=== PATIENT | female | born 1940 | race Caucasian/White ===

== ENCOUNTER 2024-02-23 08:38 | Inpatient (IN) | payer OTHER ==
[~2024-02-23] VITALS: Ht 144.8 cm; Wt 51.9 kg
[2024-02-23 08:47] VITALS: BP_SYST 162; PULSE 77; RESP 16; TEMP 97.4; O2SAT 99
[2024-02-23 09:23] LABS: BILIRUBIN,URINE NEGATIVE (NEGATIVE); BLOOD, URINE NEGATIVE (NEGATIVE); CLARITY/URINE CLEAR (CLEAR); COLOR,URINE YELLOW (YELLOW); GLUCOSE,URINE NEGATIVE (NEGATIVE); KETONES,URINE NEGATIVE (NEGATIVE); LEUKOCYTE ESTERASE ,URINE 1+ (NEGATIVE); NITRITE, URINE NEGATIVE (NEGATIVE); PROTEIN URINE NEGATIVE (NEGATIVE); UROBILINOGEN,URINE 0.2 (0.2-1.0)
[2024-02-23 09:32] LABS: BASOPHILS % (AUTO) 0.4 % (0.0-2.0); EOSINOPHILS # (AUTO) 0.1 K/uL (0.0-0.4); HEMATOCRIT 41.3 % (36-48); LYMPHOCYTES # (AUTO) 1.1 K/uL (1.0-5.5); LYMPHOCYTES % (AUTO) 14.3 % (20.5-51.5); MEAN CORPUSCULAR HEMOGLOBIN 32 pg (27-31); MEAN CORPUSCULAR HGB CONC 34 % (32-36); MEAN CORPUSCULAR VOLUME 95 fL (79.0-98.0); MONOCYTES # (AUTO) 0.3 K/uL (0.0-1.0); MONOCYTES % (AUTO) 4.5 % (1.7-9.3); NEUTROPHILS # (AUTO) 5.9 K/uL (1.8-7.7); NEUTROPHILS % (AUTO) 79.8 % (40.0-70.0); PLATELET COUNT (AUTO) 285 K/uL (130-430); RED BLOOD CELL COUNT(AUTO) 4.35 MIL/uL (4.2-6.2); WHITE BLOOD COUNT (AUTO) 7.4 K/uL (4.8-10.8)
[2024-02-23 09:52] LABS: RBC,URINE NONE SEEN /HPF (0-3)
[2024-02-23 09:53] LABS: BACTERIA,URINE MODERATE /HPF (None Seen)
[2024-02-23 09:55] LABS: ANION GAP 11 (5-15); CALCIUM 9.7 mg/dL (8.4-11.0); CARBON DIOXIDE 27 mmol/L (23-29); CHLORIDE 101 mmol/L (98-107); CREATININE 0.73 mg/dL (0.55-1.30); GLUCOSE 101 mg/dL (74-106); POTASSIUM 4.1 mmol/L (3.5-5.1); SODIUM SERUM 139 mmol/L (136-145); UREA NITROGEN, BLOOD 14 mg/dL (8-21)
[2024-02-23] MEDS ORDERED: LISI40TA20 PO (13:02)
[2024-02-23] MEDS ORDERED: ATOR10TA68 PO (13:02)
[2024-02-23] MEDS ORDERED: ALEN70TA84 PO (13:02)
[2024-02-23] MEDS ORDERED: LEVO75CA5 PO (13:02)
[2024-02-23] MEDS ORDERED: SENN8.6T19 PO (13:02)
[2024-02-23] MEDS ORDERED: METO50CA PO (13:02)
[2024-02-23] MEDS ORDERED: [UNRECOGNIZED DRUG - CODE] PO (13:02)
[2024-02-23] MEDS ORDERED: AMLO2.5T50 PO (13:02)
[2024-02-23] MEDS: cloNIDine HCL 0.2 MG TABLET PO PRN (14:39)
[2024-02-23] MEDS: amLODIPine BESYLATE 5 MG TABLET PO ONE (15:13)
[2024-02-23 15:30] VITALS: O2SAT 98
[2024-02-23 15:50] VITALS: BP_SYST 164; PULSE 86; RESP 18; TEMP 97.2
[2024-02-23 16:05] VITALS: BP_SYST 161; PULSE 89; RESP 16; TEMP 97.9; O2SAT 97
[2024-02-23] MEDS: LEVOFLOXACIN 250 MG/D5W 50 ML IV SCH (17:15)
[2024-02-23] MEDS ORDERED: ALENDRONATE SODIUM 70 MG TABLET (FOSAMAX) PO SCH (17:15)
[2024-02-23] MEDS ORDERED: ALENDRONATE SODIUM 35 MG TABLET PO SCH (17:15)
[2024-02-23] MEDS ORDERED: HYDROcodone/ACETAMIN 5-325 MG TAB (NORCO/ VICODIN) PO SCH (17:45)
[2024-02-23] MEDS: lisinopriL 20 MG TABLET PO ONE (18:57)
[2024-02-23] MEDS ORDERED: VANCOMYCIN HCL ORAL SOLUTION 25 MG/ML, 150 ML GT SCH ×2 (19:00→21:00)
[2024-02-23 20:00] VITALS: BP_SYST 133; BP_SYST 136; PULSE 64; PULSE 80; RESP 18; TEMP 97.5; TEMP 98.1; O2SAT 95; O2SAT 97
[2024-02-23] MEDS: VANCOMYCIN HCL ORAL SOLUTION 25 MG/ML, 150 ML PO SCH (21:00)
[2024-02-23] MEDS ORDERED: METOPROLOL SUCCINATE PO SCH (21:00)
[2024-02-23] MEDS: LACTOBACILLUS RHAMNOSUS GG 1 CAP CAPSULE PO SCH (21:31)
[2024-02-23] MEDS: LEVOTHYROXINE SODIUM 0.075 MG TABLET PO SCH (21:32)
[2024-02-23] MEDS: HYDROcodone/ACETAMIN 5-325 MG TAB (NORCO/ VICODIN) PO PRN (21:33)
[2024-02-24] VITALS (7 sets, daily range): BP systolic 127–152; PULSE 59–82; RESP 16–20; TEMP 96.7–97.8; O2SAT 96–100
[2024-02-24] MEDS: ACETAMINOPHEN 325 MG TABLET PO PRN (04:24)
[2024-02-24] MEDS: amLODIPine BESYLATE 5 MG TABLET PO SCH (08:59)
[2024-02-24] MEDS ORDERED: amLODIPine BESYLATE 5 MG TABLET PO SCH (09:00)
[2024-02-24] MEDS: lisinopriL 20 MG TABLET PO SCH (09:00)
[2024-02-24] MEDS: METOPROLOL SUCCINATE 50 MG TAB.SR.24H (TOPROL XL) PO SCH (09:01)
[2024-02-24] MEDS: ATORVASTATIN 10 MG TABLET PO SCH (09:01)
[2024-02-25] VITALS: BP_SYST 147; PULSE 59; RESP 18; TEMP 97.3; O2SAT 98
[2024-02-25 01:20] VITALS: RESP 20; TEMP 97.3; O2SAT 97
[2024-02-25 07:10] LABS: BASOPHILS # (AUTO) 0.1 K/uL (0.0-0.2); BASOPHILS % (AUTO) 0.4 % (0.0-2.0); EOSINOPHILS # (AUTO) 0.2 K/uL (0.0-0.4); EOSINOPHILS % (AUTO) 1.4 % (0.0-4.0); HEMATOCRIT 39.2 % (36-48); HEMOGLOBIN 13.3 g/dL (12.0-16.0); LYMPHOCYTES # (AUTO) 1.6 K/uL (1.0-5.5); LYMPHOCYTES % (AUTO) 11.4 % (20.5-51.5); MEAN CORPUSCULAR HEMOGLOBIN 32 pg (27-31); MEAN CORPUSCULAR HGB CONC 34 % (32-36); MEAN CORPUSCULAR VOLUME 95 fL (79.0-98.0); MONOCYTES # (AUTO) 0.7 K/uL (0.0-1.0); MONOCYTES % (AUTO) 4.9 % (1.7-9.3); NEUTROPHILS # (AUTO) 11.2 K/uL (1.8-7.7); NEUTROPHILS % (AUTO) 81.9 % (40.0-70.0); PLATELET COUNT (AUTO) 311 K/uL (130-430); RED BLOOD CELL COUNT(AUTO) 4.15 MIL/uL (4.2-6.2); RED CELL DISTRIBUTION WIDTH 12.7 % (9.0-15.0); WHITE BLOOD COUNT (AUTO) 13.7 K/uL (4.8-10.8)
[2024-02-25 07:52] LABS: INR 0.9 (0.8-1.2); PROTHROMBIN TIME 10.1 SECS (9.5-12.5)
[2024-02-25 08:00] VITALS: O2SAT 99
[2024-02-25 08:07] LABS: ALANINE AMINOTRANSFERASE 10 U/L (12-78); ALBUMIN 3.5 g/dL (3.4-4.8); ANION GAP 8 (5-15); ASPARTATE AMINOTRANSFERASE 17 U/L (10-37); CALCIUM 9.3 mg/dL (8.4-11.0); CARBON DIOXIDE 28 mmol/L (23-29); CHLORIDE 101 mmol/L (98-107); FREE T4 (FREE THYROXINE) 1.2 ng/dl (0.8-1.5); GLUCOSE 76 mg/dL (74-106); POTASSIUM 3.6 mmol/L (3.5-5.1); SODIUM SERUM 137 mmol/L (136-145); THYROID STIMULATING HORMONE 1.19 uIu/mL (0.36-3.74); TOTAL BILIRUBIN 0.5 mg/dL (0.0-1.0); TOTAL PROTEIN, SERUM 6.7 g/dL (6.4-8.3); UREA NITROGEN, BLOOD 12 mg/dL (8-21)
[2024-02-25 11:09] VITALS: BP_SYST 124; PULSE 72; RESP 16; TEMP 96.9; O2SAT 93
[2024-02-25 17:32] LABS: BILIRUBIN,URINE NEGATIVE (NEGATIVE); BLOOD, URINE 1+ (NEGATIVE); CLARITY/URINE CLEAR (CLEAR); COLOR,URINE YELLOW (YELLOW); GLUCOSE,URINE NEGATIVE (NEGATIVE); KETONES,URINE NEGATIVE (NEGATIVE); LEUKOCYTE ESTERASE ,URINE 3+ (NEGATIVE); NITRITE, URINE POSITIVE (NEGATIVE); PH,URINE 6.5 (5.0-8.0); PROTEIN URINE NEGATIVE (NEGATIVE); UROBILINOGEN,URINE 0.2 (0.2-1.0)
[2024-02-25] MEDS: cefTRIAXone 1 GM in D5W 50 ML IV SCH (17:44)
[2024-02-25 17:59] LABS: BACTERIA,URINE MODERATE /HPF (None Seen); RBC,URINE >100 /HPF (0-3); WBC,URINE >100 /HPF (0-3)
[2024-02-25 20:00] VITALS: BP_SYST 132; PULSE 68; RESP 20; TEMP 96.8; O2SAT 68; O2SAT 99
[2024-02-26 01:24] VITALS: BP_SYST 146; PULSE 57; RESP 16; TEMP 96; O2SAT 98
[2024-02-26 01:30] VITALS: RESP 20; TEMP 97; O2SAT 98
[2024-02-26 07:15] LABS: BASOPHILS # (AUTO) 0.1 K/uL (0.0-0.2); BASOPHILS % (AUTO) 0.5 % (0.0-2.0); EOSINOPHILS # (AUTO) 0.2 K/uL (0.0-0.4); EOSINOPHILS % (AUTO) 1.5 % (0.0-4.0); HEMATOCRIT 38.5 % (36-48); HEMOGLOBIN 13.1 g/dL (12.0-16.0); LYMPHOCYTES # (AUTO) 1.4 K/uL (1.0-5.5); LYMPHOCYTES % (AUTO) 12.8 % (20.5-51.5); MEAN CORPUSCULAR HEMOGLOBIN 32 pg (27-31); MEAN CORPUSCULAR HGB CONC 34 % (32-36); MEAN CORPUSCULAR VOLUME 94 fL (79.0-98.0); MONOCYTES # (AUTO) 0.6 K/uL (0.0-1.0); MONOCYTES % (AUTO) 5.5 % (1.7-9.3); NEUTROPHILS # (AUTO) 8.6 K/uL (1.8-7.7); NEUTROPHILS % (AUTO) 79.7 % (40.0-70.0); PLATELET COUNT (AUTO) 278 K/uL (130-430); RED BLOOD CELL COUNT(AUTO) 4.09 MIL/uL (4.2-6.2); RED CELL DISTRIBUTION WIDTH 12.3 % (9.0-15.0); WHITE BLOOD COUNT (AUTO) 10.8 K/uL (4.8-10.8)
[2024-02-26 08:00] VITALS: O2SAT 98
[2024-02-26 08:28] LABS: ALANINE AMINOTRANSFERASE 10 U/L (12-78); ALBUMIN 3.4 g/dL (3.4-4.8); ANION GAP 7 (5-15); ASPARTATE AMINOTRANSFERASE 16 U/L (10-37); CALCIUM 9.3 mg/dL (8.4-11.0); CARBON DIOXIDE 29 mmol/L (23-29); CHLORIDE 99 mmol/L (98-107); CREATININE 0.72 mg/dL (0.55-1.30); GLUCOSE 86 mg/dL (74-106); POTASSIUM 3.5 mmol/L (3.5-5.1); SODIUM SERUM 135 mmol/L (136-145); TOTAL BILIRUBIN 0.4 mg/dL (0.0-1.0); TOTAL PROTEIN, SERUM 6.5 g/dL (6.4-8.3); UREA NITROGEN, BLOOD 11 mg/dL (8-21)
[2024-02-26 12:49] VITALS: BP_SYST 107; PULSE 69; RESP 17; TEMP 97; O2SAT 98
[2024-02-26 16:39] VITALS: BP_SYST 144; PULSE 73; RESP 18; TEMP 97; O2SAT 97
[2024-02-26] MEDS: ACETAMINOPHEN 325 MG TABLET PO PRN (16:41)
[2024-02-26] MEDS: SENNOSIDES 8.6 MG TABLET PO ONE (18:28)
[2024-02-26] MEDS: VANCOMYCIN HCL ORAL SOLUTION 25 MG/ML, 150 ML PO SCH (18:31)
[2024-02-26 20:00] VITALS: BP_SYST 130; PULSE 62; RESP 20; TEMP 96.8; O2SAT 97; O2SAT 98
[2024-02-26] MEDS: SENNOSIDES 8.6 MG TABLET PO SCH (22:08)
[2024-02-27 01:16] VITALS: BP_SYST 138; PULSE 57; RESP 17; TEMP 96.5; O2SAT 96
[2024-02-27 01:20] VITALS: RESP 20; TEMP 97; O2SAT 98
[2024-02-27 08:00] VITALS: O2SAT 97
[2024-02-27] MEDS: SENNOSIDES 8.6 MG TABLET PO SCH (09:56)
[2024-02-27 13:21] VITALS: BP_SYST 152; PULSE 71; RESP 18; TEMP 98.4; O2SAT 98
[2024-02-27] MEDS ORDERED: LEVO-62 PO (17:05)
[2024-02-27] MEDS ORDERED: LACT1CAP57 PO (17:05)
[2024-02-27] MEDS ORDERED: Pyridoxine Hcl PO (17:05)
[2024-02-27] MEDS ORDERED: VANC25SO PO (17:05)
[2024-02-27] MEDS ORDERED: METR-343 PO (17:05)
[2024-02-27 17:16] VITALS: BP_SYST 147; PULSE 65; RESP 18; TEMP 97.5; O2SAT 95
[2024-02-27 17:31] VITALS: BP_SYST 118; PULSE 67; RESP 16; TEMP 96.5; O2SAT 97
[2024-02-27] MEDS ORDERED: metroNIDAZOLE 250 MG TABLET PO SCH (22:00)
[2024-02-28] MEDS ORDERED: PYRIDOXINE HCL 50 MG TABLET PO SCH (09:00)
[2024-02-28] MEDS ORDERED: levoFLOXacin 500 MG TABLET PO SCH (10:00)
== END 2024-02-27 18:57 | disposition home health service (06) | DRG 699 ==
LOC: SED 08:38 → SMU 12:13
PROVIDERS: ADMIT Internal Medicine; ATTEND Internal Medicine
DX: N32.1 Vesicointestinal fistula (principal); K57.32 Diverticulitis of large intestine without perforation or abscess without bleeding; N13.6 Pyonephrosis; I10 Essential (primary) hypertension; M13.88 Other specified arthritis, other site; G31.84 Mild cognitive impairment of uncertain or unknown etiology; B96.4 Proteus (mirabilis) (morganii) as the cause of diseases classified elsewhere; Z90.710 Acquired absence of both cervix and uterus; Z88.0 Allergy status to penicillin
CPT/HCPCS: 36415; 80048; 80053; 81000; 81001; 81015; 84439; 84443; 85025; 85610; 85730; 87086; 87186; 97110-GP; 97116-GP; 97530-GP; 99285; J0696; J1956; J7060; Q9967